=== PATIENT | female | born 1930 | race Caucasian/White ===

== ENCOUNTER 2017-08-28 00:32 | Inpatient (IN) ==
[2017-08-28 01:34] LABS: Basophils % 0.2 %; Hematocrit 34.2 % (35.3-44.9); Hemoglobin 10.2 g/dL (11.5-15.4); Immature Granulocytes % 0.4 % (0-4); Lymphocytes # 0.8 K/mcL (0.6-4.6); Lymphocytes % 4.5 %; Mean Corpuscular HGB Conc 29.8 g/dL (31.6-35.5); Mean Corpuscular Hemoglobin 24.5 pg (28.0-33.3); Mean Corpuscular Volume 82.2 fL (83.0-100.0); Mean Platelet Volume 9.4 fL (9.4-12.4); Monocytes # 1.8 K/mcL (0.0-1.3); Monocytes % 10.1 %; Neutrophils # 15.4 K/mcL (1.6-8.9); Nucleated Red Blood Cells 0.1 /100 WBC (0); Platelet Count 329 K/mcL (140-400); Red Blood Count 4.16 M/mcL (3.82-4.97); Red Cell Distribution Width 18.4 % (11.5-14.5); Segmented Neutrophils % 84.8 %
[2017-08-28 01:52] LABS: VBG HCO3 31 mEq/L (21-27); VBG PCO2 52 mmHg (41-51); VBG PH 7.39 pH Units (7.32-7.42); VBG PO2 49 mmHg (25-50)
[2017-08-28 01:54] LABS: BUN/Creatinine Ratio 23 (6-26); Blood Urea Nitrogen 19 mg/dL (8-23); Calcium 9.1 mg/dL (8.6-10.3); Carbon Dioxide 28 mEq/L (23-29); Chloride 101 mEq/L (98-107); Glucose 131 mg/dL (70-105); Osmolality,Calculated 286 (280-300); Potassium 3.9 mEq/L (3.5-5.1); Sodium 136 mEq/L (136-145); eGFR For African Americans > 60 (> 60); eGFR For Non-African Americans > 60 (> 60)
[2017-08-28] MEDS ORDERED: Ziprasidone injection 20 MG/ML VIAL IM ONE ×2 (01:59→09:42)
[2017-08-28] MEDS ORDERED: Ipratropium/Albuterol Neb 3 ML IH ONE (01:59)
[2017-08-28] MEDS ORDERED: Piperacillin/Tazobactam 3.375 GM in Water for inj. (sterile) 20 ML 20 ML IVP ONE (02:06)
[2017-08-28] MEDS ORDERED: 0.9 % Sodium Chloride 1,000 ML IVC ONE (02:06)
--- NOTE | 2017-08-28 02:09 | Emergency Department Note ---
Disposition Clinical Impression: Hypoxia, Sepsis Pneumonia Qualifiers: Pneumonia type: due to unspecified organism Laterality: right Lung location: lower lobe of lung Qualified Code(s): J18.1 - Lobar pneumonia, unspecified organism Disposition: Admitted As Inpatient Condition: Fair Referrals: NONE,PCP [Primary Care Provider] - Time of Disposition: 02: General Adult HPI - General Chief complaint: ED Upper Respiratory Infection Stated complaint: low sat, flu like sx Time Seen by Provider: 08/28/17 01:00 Source: EMS Mode of arrival: EMS Limitations: altered mental status Nursing Notes Reviewed: Yes Vital Signs Reviewed: Yes - History of Present Illness HPI Narrative: 87-year-old female with a history of dementia, CAD, hypertension and hyperlipidemia presents for evaluation of hypoxia as well as flulike illness. Patient does reside at a nursing facility. Nursing staff notes that the patient did spike a temperature today of 101. Patient was also requiring oxygen per EMS patient was noted to be in the mid 80s. Patient's typically not on oxygen. Patient was requiring some oxygen in the emergency department. Nursing staff also had a cough. Notes that the patient's mental status is at baseline. Pain Scale: 0 - Related Data Allergies Allergy/AdvReac Type Severity Reaction Status Date / Time Sulfa (Sulfonamide Allergy See Verified 08/28/17 00:43 Antibiotics) Comments lorazepam [From Ativan] AdvReac Irritable Verified 08/28/17 00:43 All systems ED: reviewed and negative except as stated. Constitutional: Reports: fever Cardiovascular: Denies: chest pain Respiratory: Reports: cough, dyspnea Gastrointestinal: Denies: abdominal pain, nausea, vomiting Past Medical History - Past Medical History Source: patient Medical history: Reports: arthritis, coronary artery disease, dementia, hyperlipidemia, hypertension - Social History Smoking Status: Unknown if ever smoked Physical Exam - General Limitations: altered mental status General appearance: alert, in no apparent distress - Head Head exam: atraumatic, normal inspection - Eye Eye exam: Present: normal appearance, EOMI - ENT ENT exam: normal exam - Neck Neck exam: Present: normal inspection - Chest Chest inspection: Present: normal inspection, symmetric chest wall rise - Respiratory Respiratory exam: Present: wheezes (Faint expiratory wheeze), prolonged expiratory phase, other (Right-sided rhonchi). Absent: respiratory distress - Cardiovascular Cardiovascular exam: Present: regular rate, normal rhythm. Absent: systolic murmur - Abdominal Exam Abdominal exam: Present: soft, Non-Tender - Extremities Exam Extremities exam: Present: normal inspection - Expanded Lower Extremity Exam Neurovascular/Tendon exam: Present: normal capillary refill - Back Exam Back exam: Present: normal inspection - Neurological Exam Neurological exam: Present: alert, oriented X3 - Skin Skin exam: Present: warm, dry, intact, normal color Course Course Narrative: Patient seen and examined. Patient has a history of dementia at baseline. Patient is not cooperative with exam. Patient will receive Geodon IM. She will also get basic lab work chest x-ray. Supplemental oxygen respiratory support. Vital Signs Temperature 99.4 F 08/28/17 00:34 Pulse Rate 98 08/28/17 00:34 Respiratory Rate 18 08/28/17 00:34 Blood Pressure 119/74 08/28/17 00:34 O2 Sat by Pulse Oximetry 93 08/28/17 00:34 Temperature 99.4 F 08/28/17 00:34 Pulse Rate 105 08/28/17 02:34 Respiratory Rate 20 08/28/17 03:18 Blood Pressure 145/68 08/28/17 03:18 O2 Sat by Pulse Oximetry 90 08/28/17 02:34 Oxygen Delivery Oxygen Delivery Nasal Cannula Medical Decision Making - [facility] Narrative Medical decision making narrative: Patient presents for concerns of pneumonia. Patient is in a nursing facility. Patient does not have a fever earlier today. Does have a cough. Patient does not provide any additional history due to history of dementia. Dementia appears at baseline. Patient is requiring supplemental oxygen. Patient was given Geodon as she was noncooperative with exam. Agents chest x-ray findings are consistent with right-sided pneumonia. Patient does have a white count of sedation with pneumonia. Does meet SIRS however given no hemodynamic compromise and a negative lactate the patient does not meet criteria for 30 mL/ kg bolus. Patient was given IV fluid hydration and coverage for healthcare associated pneumonia. She was empirically treated with Tamiflu in the emergency department with a single dose. Subsequent laboratory findings show that she is influenza negative. - Lab Data Lab results reviewed: Yes I reviewed the patient's lab results. Result diagrams: 08/28/17 01:26 08/28/17 01:26 Lab Results 08/28/17 08/28/17 08/28/17 Range/Units 01:26 01:26 01:26 WBC 18.1 H (4.3-11.1) K/mcL RBC 4.16 (3.82-4.97) M/mcL Hgb 10.2 L (11.5-15.4) g/dL Hct 34.2 L (35.3-44.9) % MCV 82.2 L (83.0-100.0) fL MCH 24.5 L (28.0-33.3) pg MCHC 29.8 L (31.6-35.5) g/dL RDW 18.4 H (11.5-14.5) % Plt Count 329 (140-400) K/mcL MPV 9.4 (9.4-12.4) fL Immature Gran % 0.4 (0-4) % Seg Neutrophils % 84.8 % Lymphocytes % 4.5 % Monocytes % 10.1 % Eosinophils % 0.0 % Basophils % 0.2 % Neutrophils # 15.4 H (1.6-8.9) K/mcL Lymphocytes # 0.8 (0.6-4.6) K/mcL Monocytes # 1.8 H (0.0-1.3) K/mcL Eosinophils # 0.0 (0.0-0.6) K/mcL Basophils # 0.0 (0.0-0.2) K/mcL Nucleated RBCs/100 WBC 0.1 H (0) /100 WBC Platelet Estimate Normal (Normal) Polychromasia 1+ A (Not Present) Hypochromasia Present A (Not Present) Anisocytosis 1+ A (Not Present) VBG pH (7.32-7.42) pH Units VBG pCO2 (41-51) mmHg VBG pO2 (25-50) mmHg VBG HCO3 (21-27) mEq/L Sodium 136 (136-145) mEq/L Potassium 3.9 (3.5-5.1) mEq/L Chloride 101 (98-107) mEq/L Carbon Dioxide 28 (23-29) mEq/L BUN 19 (8-23) mg/dL Creatinine 0.83 (0.60-1.20) mg/dL Est GFR ( Amer) > 60 (> 60) Est GFR (Non-Af Amer) > 60 (> 60) BUN/Creatinine Ratio 23 (6-26) Glucose 131 H (70-105) mg/dL Calculated Osmolality 286 (280-300) Lactic Acid 1.0 (0.5-2.2) mmol/L Calcium 9.1 (8.6-10.3) mg/dL Troponin I (< 0.04) ng/mL B-Natriuretic Peptide (Less than 100) pg/mL 08/28/17 08/28/17 08/28/17 Range/Units 01:26 01:26 01:50 WBC (4.3-11.1) K/mcL RBC (3.82-4.97) M/mcL Hgb (11.5-15.4) g/dL Hct (35.3-44.9) % MCV (83.0-100.0) fL MCH (28.0-33.3) pg MCHC (31.6-35.5) g/dL RDW (11.5-14.5) % Plt Count (140-400) K/mcL MPV (9.4-12.4) fL Immature Gran % (0-4) % Seg Neutrophils % % Lymphocytes % % Monocytes % % Eosinophils % % Basophils % % Neutrophils # (1.6-8.9) K/mcL Lymphocytes # (0.6-4.6) K/mcL Monocytes # (0.0-1.3) K/mcL Eosinophils # (0.0-0.6) K/mcL Basophils # (0.0-0.2) K/mcL Nucleated RBCs/100 WBC (0) /100 WBC Platelet Estimate (Normal) Polychromasia (Not Present) Hypochromasia (Not Present) Anisocytosis (Not Present) VBG pH 7.39 (7.32-7.42) pH Units VBG pCO2 52 H (41-51) mmHg VBG pO2 49 (25-50) mmHg VBG HCO3 31 H (21-27) mEq/L Sodium (136-145) mEq/L Potassium (3.5-5.1) mEq/L Chloride (98-107) mEq/L Carbon Dioxide (23-29) mEq/L BUN (8-23) mg/dL Creatinine (0.60-1.20) mg/dL Est GFR ( Amer) (> 60) Est GFR (Non-Af Amer) (> 60) BUN/Creatinine Ratio (6-26) Glucose (70-105) mg/dL Calculated Osmolality (280-300) Lactic Acid (0.5-2.2) mmol/L Calcium (8.6-10.3) mg/dL Troponin I 0.03 (< 0.04) ng/mL B-Natriuretic Peptide 173 H (Less than 100) pg/mL 08/28/17 Range/Units 02:48 WBC (4.3-11.1) K/mcL RBC (3.82-4.97) M/mcL Hgb (11.5-15.4) g/dL Hct (35.3-44.9) % MCV (83.0-100.0) fL MCH (28.0-33.3) pg MCHC (31.6-35.5) g/dL RDW (11.5-14.5) % Plt Count (140-400) K/mcL MPV (9.4-12.4) fL Immature Gran % (0-4) % Seg Neutrophils % % Lymphocytes % % Monocytes % % Eosinophils % % Basophils % % Neutrophils # (1.6-8.9) K/mcL Lymphocytes # (0.6-4.6) K/mcL Monocytes # (0.0-1.3) K/mcL Eosinophils # (0.0-0.6) K/mcL Basophils # (0.0-0.2) K/mcL Nucleated RBCs/100 WBC (0) /100 WBC Platelet Estimate (Normal) Polychromasia (Not Present) Hypochromasia (Not Present) Anisocytosis (Not Present) VBG pH (7.32-7.42) pH Units VBG pCO2 (41-51) mmHg VBG pO2 (25-50) mmHg VBG HCO3 (21-27) mEq/L Sodium (136-145) mEq/L Potassium (3.5-5.1) mEq/L Chloride (98-107) mEq/L Carbon Dioxide (23-29) mEq/L BUN (8-23) mg/dL Creatinine (0.60-1.20) mg/dL Est GFR ( Amer) (> 60) Est GFR (Non-Af Amer) (> 60) BUN/Creatinine Ratio (6-26) Glucose (70-105) mg/dL Calculated Osmolality (280-300) Lactic Acid 1.3 (0.5-2.2) mmol/L Calcium (8.6-10.3) mg/dL Troponin I (< 0.04) ng/mL B-Natriuretic Peptide (Less than 100) pg/mL - Radiology Data Radiology results reviewed: Yes I reviewed the patient's radiology results. Chest X-Ray 08/28/17 01:11 IMPRESSION: Right basilar airspace disease likely represents pneumonia. D/ / Rajinder Pedraza MD / Rajinder Pedraza MD Interpreting Provider: Rajinder Pedraza MD - EKG Data EKG #1 EKG attestation: Yes I reviewed and interpreted this EKG. EKG shows normal: sinus rhythm Rate: tachycardia Rhythm: NSR [place]/QRS: normal Interpretation: no acute changes, nonspecific ST-T wave changes S.B.A.R. - S.B.A.R. Situation: Demographics Background: Presenting Complaint Assessment: Vital Signs, Patient/Family Expectation Recommendation: Barrier(s) to disposition, Recommendation based on pending studies, treatments, or consults S.B.A.RBrenda Report Given to: Dr. Justina Bean Repor Time: 02:40 Attestation Statement - Attestation Attestation: I, Rolf Amanda DO, examined this patient [id number] and my medical decision-making was reviewed with Dr. Shaka Guerrero, Resident Physician. I agree with the documented findings, disposition and treatment plan as described except to the extent set forth below. Please see my progress notes for details. 87-year-old female presents emergency room nursing facility for confusion, fever , generalized malaise. She is a pleasantly demented 87-year-old. She denies any trauma or injury at this point. She does answer questions but it is difficult to determine whether or not she understands the questioning that is going on. She is only alert to her name. Physical exam is unremarkable except for coarse breath sounds bilaterally. Her abdomen is soft nontender nondistended. She has been a diaper. She does not have any signs of skin breakdown or ulceration revision of visible signs of trauma to the head of the face. Detailed evaluation to be completed for infectious etiology secondary to confusion and fever. Fever will be controlled. EKG and screening laboratory workup were unremarkable except for elevated white blood cell count neutrophilia. Antibiotic regimen started this time for pneumonia covering healthcare acquired pneumonia. Chest x-ray does show pulmonary congestion possible infiltrate. Influenza swab is negative. Patient was provided with breathing treatments here but she will not tolerate them. Her vital signs remained stable after Geodon out her acute agitation. Patient will be admitted for definitive management here in the hospital. No other acute recommendations issues noted from the hospitals at this time. Physical exam is otherwise unremarkable. See detailed documentation of the physical exam, medical intervention, medical decision-making and disposition in the resident physician' s note. No critical care provided to the patient's treatment course 0314 Patient found to have elevated white blood cell count intermittent tachycardia and a source of infection. She does meet sepsis criteria. Clinically she does not require fluid resuscitation this time with stable blood pressure and a negative lactic acid. Patient otherwise is resting comfortably in the bed with antibiotic regimen started at this time. Patient is otherwise clinically stable. Will continue to monitor as treatment course is completed admission process is established. Otherwise no other acute issues noted at this time. Patient is in good medical condition at the time of transport to the floor.
[2017-08-28 02:10] LABS: Anisocytosis 1+ (Not Present); Hypochromasia Present (Not Present); Platelet Estimate Normal (Normal); Polychromasia 1+ (Not Present)
--- NOTE | 2017-08-28 05:34 | Internal Med History&Physical ---
Date of Encounter: 08/28/17 Time of Encounter: 05:29 Assessment and Plan (1) Pneumonia Current visit: Yes Status: Acute HCAP Continue Vancomycin and Zosyn Add Azithromycin for atypical coverage DuoNebs Pneumonia type: due to unspecified organism Laterality: right (2) Sepsis Current visit: Yes Status: Acute Cautious fluid resuscitation Repeat LA Continue current abx Qualifiers: Sepsis type: sepsis due to unspecified organism Qualified Code(s): A41.9 - Sepsis, unspecified organism (3) Dementia Current visit: No Status: Chronic Continue her home mediations She may require Haldol or Zyprexa for agitation Qualifiers: Dementia type: unspecified type Dementia behavioral disturbance: with behavioral disturbance Qualified Code(s): F03.91 - Unspecified dementia with behavioral disturbance Internal Medicine - H&P: HPI Chief complaint: Pneumonia Admitted From: Emergency Dept Plans for Post Hospital Care: Transfer Senior Living Facility History of present illness: The patient is an 87-year-old female dementia patient who presented in the ER with hypoia, cough and flu-like symptoms. She reportedly has a 101 degree fever earlier today and had an Spo2 in the mid 80s on room air. Her CXR mshowed a probable right basilar infiltrate and she was started on Vanc and Zosyn. Per report she lives in a NH and several residents have influenza so she was imperically started on Tamiflu, but this was discontinued when her flu swab was negative. She can provide little information because of her dementia so most of her history comes from the EMR and ER notes. She's now breathing more comfortably and maintaining an Spo2 > 94% on 4L NC. Blood cultures are pending. Her other comorbid conditions include CAD, HTN and Dyslipidemia. Past Med Surg Social Fam HX - Past Medical History Medical history: arthritis, coronary artery disease, dementia, hyperlipidemia, hypertension - Social History Smoking Status: Unknown if ever smoked Internal Medicine - H&P: Meds Acetaminophen [Tylenol] PO TID 08/28/17 [History] Aspirin 08/28/17 [History] Citalopram 08/28/17 [History] Docusate Sodium [Stool Softener] 08/28/17 [History] Guaifenesin [Diabetic Tussin Ex] 08/28/17 [History] Guaifenesin [Mucinex] 600 mg PO 08/28/17 [History] Ipratropium/Albuterol Neb 08/28/17 [History] Levocetirizine Dihydrochloride 08/28/17 [History] Lisinopril [Lisinopril] 08/28/17 [History] Metoprolol Tartrate 08/28/17 [History] Namzaric Titration Pack 08/28/17 [History] Polyethylene Glycol 3350 [Gavilax] 08/28/17 [History] 3 Allergy/AdvReac Type Severity Reaction Status Date / Time Sulfa (Sulfonamide Allergy See Verified 08/28/17 00:43 Antibiotics) Comments lorazepam [From Ativan] AdvReac Irritable Verified 08/28/17 00:43 ROS unobtainable: due to mental status All Systems PM: A 10-system review of systems was performed and is negative for pertinent findings except as documented above in the HPI. - Constitutional Vitals: Temp Pulse Resp BP Pulse Ox 98.7 F 101 20 135/73 98 08/28/17 03:47 08/28/17 03:47 08/28/17 03:47 08/28/17 03:47 08/28/17 04:31 General appearance: Present: A&O X 1, disheveled, mild distress, obese. Absent : answers questions appropriately - Head Head exam: Present: atraumatic, normocephalic - Eye Eye exam: Present: EOMI, PERRL, conjuntiva pink, sclera anicteric. Absent: conjunctival injection Pupils: Present: PERRL - Neck Neck exam general surgery: Present: supple, trachea midline. Absent: lymphadenopathy - Respiratory Respiratory exam: Present: decreased breath sounds, rales, rhonchi. Absent: accessory muscle use, CTAB, stridor, wheezes - Cardiovascular Cardiovascular exam: Present: distant heart sounds, RRR, +S1, +S2. Absent: diastolic murmur, gallop, rubs, systolic murmur - GI/Abdominal GI/Abdominal exam: Present: normal bowel sounds, soft, no peritoneal signs. Absent: distended, guarding, rebound, rigid, tenderness - Extremities Exam Extremities exam: Present: pedal edema, warm, radial pulses palpable and symmetrical. Absent: calf tenderness, cyanotic - Neurological Exam Neurological exam: Present: CN II-XII intact, no focal deficits. Absent: oriented X3, pronater drift, facial droop, speech deficit - Skin Skin exam: Present: diaphoretic, intact, warm. Absent: mottled, normal color, pallor Internal Med - H&P Results - Labs CBC & Chem 7: 08/28/17 01:26 08/28/17 01:26
[2017-08-28] MEDS ORDERED: Benzonatate 100 MG CAPSULE PO PRN (06:05)
[2017-08-28 06:40] LABS: Hematocrit 35.9 % (35.3-44.9); Hemoglobin 10.4 g/dL (11.5-15.4); Mean Corpuscular Hemoglobin 24.3 pg (28.0-33.3); Mean Corpuscular Volume 83.9 fL (83.0-100.0); Mean Platelet Volume 9.8 fL (9.4-12.4); Nucleated Red Blood Cells 0.1 /100 WBC (0); Platelet Count 333 K/mcL (140-400); Red Blood Count 4.28 M/mcL (3.82-4.97); Red Cell Distribution Width 18.7 % (11.5-14.5)
[2017-08-28 07:04] LABS: BUN/Creatinine Ratio 22 (6-26); Blood Urea Nitrogen 17 mg/dL (8-23); Calcium 8.9 mg/dL (8.6-10.3); Carbon Dioxide 30 mEq/L (23-29); Chloride 102 mEq/L (98-107); Glucose 135 mg/dL (70-105); Osmolality,Calculated 292 (280-300); Potassium 3.8 mEq/L (3.5-5.1); Sodium 139 mEq/L (136-145); eGFR For African Americans > 60 (> 60); eGFR For Non-African Americans > 60 (> 60)
--- NOTE | 2017-08-28 08:13 | Internal Med Progress Note ---
Date of Encounter: 08/28/17 Time of Encounter: 10:00 - Assessment and plan (1) Sepsis Current Visit: Yes Status: Acute Assessment and plan: Continue current management. Patient intermittently agitated due to underlying dementia. Will treat with antipsychotic agents as needed. One-to-one sitter. Follow blood cultures. O2 supplementation. Qualifiers: Sepsis type: sepsis due to unspecified organism Qualified Code(s): A41.9 - Sepsis, unspecified organism (2) Hypoxia Current Visit: Yes Status: Acute (3) Pneumonia Current Visit: Yes Status: Acute Qualifiers: Pneumonia type: due to unspecified organism Laterality: right Lung location: lower lobe of lung Qualified Code(s): J18.1 - Lobar pneumonia, unspecified organism (4) Dementia Current Visit: No Status: Chronic Qualifiers: Dementia type: unspecified type Dementia behavioral disturbance: with behavioral disturbance Qualified Code(s): F03.91 - Unspecified dementia with behavioral disturbance - Constitutional Vitals: Temp Pulse Resp BP Pulse Ox 98.7 F 93 22 123/67 97 08/28/17 07:18 08/28/17 07:18 08/28/17 07:18 08/28/17 07:18 08/28/17 07:27 General appearance: Present: A&O X 1, disheveled, mild distress, obese. Absent : answers questions appropriately Internal Medicine: Result - Labs CBC & Chem 7: 08/28/17 06:07 08/28/17 06:07 Labs: Short CBC 08/28/17 Range/Units 06:07 WBC 18.8 H (4.3-11.1) K/mcL Hgb 10.4 L (11.5-15.4) g/dL Hct 35.9 (35.3-44.9) % Plt Count 333 (140-400) K/mcL BMP 08/28/17 06:07 Sodium 139 Potassium 3.8 Chloride 102 Carbon Dioxide 30 H BUN 17 Creatinine 0.79 Glucose 135 H Calcium 8.9 Consult Discharge Plan - Plan Referrals: NONE,PCP [Primary Care Provider] - (Patient is from [facility])
[2017-08-28] MEDS: Azithromycin 500 MG in D5% in Water 250 ML IVPB SCH (08:17)
[2017-08-28 08:50] LABS: Lymphocytes # 1.5 K/mcL (0.6-4.6); Monocytes # 1.5 K/mcL (0.0-1.3); Neutrophils # 15.8 K/mcL (1.6-8.9); Platelet Estimate Normal (Normal); Reactive Lymphocytes Present (Not Present)
[2017-08-28 09:35] LABS: Adenovirus Not Detected (Not Detect); Bordetella Pertussis Not Detected (Not Detect); Chlamydophila pneumoniae Not Detected (Not Detect); Coronavirus 229E Not Detected (Not Detect); Coronavirus HKU1 Not Detected (Not Detect); Coronavirus NL63 Not Detected (Not Detect); Coronavirus OC43 Not Detected (Not Detect); Human Metapneumovirus Not Detected (Not Detect); Human Rhinovirus/Enterovirus Not Detected (Not Detect); Influenza A Subtype 2009 H1 Not Detected (Not Detect); Influenza A Untypeable Not Detected (Not Detect); Influenza B Not Detected (Not Detect); Mycoplasma pneumoniae Not Detected (Not Detect); Parainfluenza Virus 1 Not Detected (Not Detect); Parainfluenza Virus 2 Not Detected (Not Detect); Parainfluenza Virus 3 Not Detected (Not Detect); Parainfluenza Virus 4 Not Detected (Not Detect); Respiratory Syncytial Virus Not Detected (Not Detect)
[2017-08-28] MEDS: Ipratropium/Albuterol Neb 3 ML IH PRN (14:27)
--- NOTE | 2017-08-28 15:16 | Electrocardiograph Report ---
[address] [place] [address] Test Date: 2017-08-28 Pat Name: Luba Villa Department: 103 Room: 2A25 Gender: F Darkroom Technician: : [id number] Requested By: Shaka Guerrero Order Number: [id number] Reading MD: Meche Perkins Measurements Intervals [place] Rate: 101 P: 93 [place]: 168 QRS: 11 QRSD: 69 T: 79 QT: 322 QTc: 380 Interpretive Statements SINUS TACHYCARDIA NONSPECIFIC ST-WAVE ABNORMALITY ABNORMAL RHYTHM ECG Electronically Signed On 08-28-2017 15:14:52 EST by Meche Perkins
[2017-08-28] MEDS: *HR* Heparin 5,000 UNIT/ML VIAL SQ SCH (16:28)
[2017-08-28] MEDS: Acetaminophen 325 MG TABLET PO SCH ×2 (16:28→20:15)
[2017-08-28] MEDS ORDERED: GuaiFENesin Liq 200 MG/10 ML UDC PO PRN (20:30)
[2017-08-28] MEDS ORDERED: Haloperidol Lactate 5 MG/ML VIAL IM ONE (23:28)
[2017-08-29] MEDS: Ipratropium/Albuterol Neb 3 ML IH PRN (03:25)
[2017-08-29 04:19] LABS: Red Cell Distribution Width 18.9 % (11.5-14.5)
[2017-08-29 04:20] LABS: Basophils # 0.1 K/mcL (0.0-0.2); Basophils % 0.6 %; Eosinophils % 0.2 %; Hematocrit 34.8 % (35.3-44.9); Hemoglobin 9.8 g/dL (11.5-15.4); Immature Granulocytes % 1.4 % (0-4); Lymphocytes # 1.6 K/mcL (0.6-4.6); Lymphocytes % 10.3 %; Mean Corpuscular HGB Conc 28.2 g/dL (31.6-35.5); Mean Corpuscular Hemoglobin 24.2 pg (28.0-33.3); Mean Corpuscular Volume 85.9 fL (83.0-100.0); Mean Platelet Volume 10.2 fL (9.4-12.4); Monocytes # 1.2 K/mcL (0.0-1.3); Monocytes % 8.1 %; Nucleated Red Blood Cells 0.3 /100 WBC (0); Platelet Count 336 K/mcL (140-400); Red Blood Count 4.05 M/mcL (3.82-4.97); Segmented Neutrophils % 79.4 %
[2017-08-29 04:23] LABS: Neutrophils # 12.2 K/mcL (1.6-8.9)
[2017-08-29 04:36] LABS: BUN/Creatinine Ratio 25 (6-26); Blood Urea Nitrogen 20 mg/dL (8-23); Calcium 9.1 mg/dL (8.6-10.3); Carbon Dioxide 29 mEq/L (23-29); Chloride 104 mEq/L (98-107); Glucose 105 mg/dL (70-105); Osmolality,Calculated 291 (280-300); Potassium 4.2 mEq/L (3.5-5.1); Sodium 139 mEq/L (136-145); eGFR For African Americans > 60 (> 60); eGFR For Non-African Americans > 60 (> 60)
[2017-08-29 05:09] LABS: Hypochromasia Present (Not Present); Reactive Lymphocytes Present (Not Present); Toxic Granulation Present (Not Present)
[2017-08-29] MEDS: *HR* Heparin 5,000 UNIT/ML VIAL SQ SCH ×2 (05:49→16:36)
[2017-08-29] MEDS: Azithromycin 500 MG in D5% in Water 250 ML IVPB SCH (06:37)
[2017-08-29] MEDS: Ipratropium/Albuterol Neb 3 ML IH SCH ×5 (07:49→23:49)
[2017-08-29] MEDS ORDERED: Haloperidol Lactate 5 MG/ML VIAL IVP ONE ×2 (08:00→18:11)
[2017-08-29] MEDS: Aspirin Enteric Coated 81 MG Tablet PO SCH (08:10)
[2017-08-29] MEDS: Acetaminophen 325 MG TABLET PO SCH ×3 (08:10→22:08)
[2017-08-29] MEDS ORDERED: DONEPEZIL HCL PO SCH (09:00)
[2017-08-29] MEDS ORDERED: MEMANTINE HCL PO SCH (09:00)
[2017-08-29] MEDS ORDERED: LEVOCETIRIZINE DIHYDROCHLORIDE PO SCH (09:00)
--- NOTE | 2017-08-29 14:36 | Internal Med Progress Note ---
Date of Encounter: 08/29/17 Time of Encounter: 09:25 - Assessment and plan (1) Sepsis Current Visit: Yes Status: Suspected Assessment and plan: On broad-spectrum antibiotics. Cultures are so far negative. If they remain negative the next 24 hours, will de-escalate antibiotics. Qualifiers: Sepsis type: methicillin resistant Staphylococcus aureus Qualified Code(s) : A41.02 - Sepsis due to Methicillin resistant Staphylococcus aureus (2) Hypoxia Current Visit: Yes Status: Acute Assessment and plan: Continue O2 supplementation. Due to pneumonia. (3) Pneumonia Current Visit: Yes Status: Suspected Assessment and plan: Being treated with broad-spectrum antibiotics. Continue for now. Monitor culture results. WBC count is improving. Moderate risk for complications. Qualifiers: Pneumonia type: due to methicillin-resistant Staphylococcus aureus (MRSA) Laterality: right Lung location: lower lobe of lung Qualified Code(s): J15.212 - Pneumonia due to Methicillin resistant Staphylococcus aureus (4) Dementia Current Visit: Yes Status: Chronic Assessment and plan: With episodes of delirium and agitation. Will prescribe risperidone at bedtime. Monitor and treat agitation as needed. Qualifiers: Dementia type: unspecified type Dementia behavioral disturbance: with behavioral disturbance Qualified Code(s): F03.91 - Unspecified dementia with behavioral disturbance (5) DVT prophylaxis Current Visit: Yes Status: Acute Assessment and plan: With subcutaneous heparin - Subjective Interval history: Patient was agitated earlier this morning and combative with nursing staff. She received IV Haldol and is resting. She has not had any fever overnight. Remains on O2 supplementation at 4 L by nasal cannula. - Constitutional Vitals: Temp Pulse Resp BP Pulse Ox 99.4 F 75 18 115/72 91 08/29/17 11:14 08/29/17 11:14 08/29/17 11:59 08/29/17 11:14 08/29/17 11:59 General appearance: Present: A&O X 1, disheveled, mild distress, obese. Absent : answers questions appropriately - Eye Eye exam: Present: EOMI, PERRL, conjuntiva pink, sclera anicteric - Neck Neck exam general surgery: Present: supple, trachea midline. Absent: lymphadenopathy - Respiratory Respiratory exam: Present: CTAB. Absent: accessory muscle use, rales, rhonchi, wheezes - Cardiovascular Cardiovascular exam: Present: RRR, +S1, +S2. Absent: diastolic murmur, gallop, rubs, systolic murmur - GI/Abdominal GI/Abdominal exam: Present: normal bowel sounds, soft, no peritoneal signs. Absent: distended, tenderness - Extremities Exam Extremities exam: Present: warm, radial pulses palpable and symmetrical. Absent : calf tenderness, cyanotic, pedal edema Internal Medicine: Result - Labs CBC & Chem 7: 08/29/17 03:28 08/29/17 03:28 Labs: Short CBC 08/29/17 Range/Units 03:28 WBC 15.3 H (4.3-11.1) K/mcL Hgb 9.8 L (11.5-15.4) g/dL Hct 34.8 L (35.3-44.9) % Plt Count 336 (140-400) K/mcL Neutrophils # 12.2 H (1.6-8.9) K/mcL BMP 08/29/17 03:28 Sodium 139 Potassium 4.2 Chloride 104 Carbon Dioxide 29 BUN 20 Creatinine 0.80 Glucose 105 Calcium 9.1 - Impressions Impressions Videofluoroscopic Swallow 08/28/17 13:39 IMPRESSION: Single episode of transient flash penetration of thin barium via straw. No additional episodes of laryngeal penetration or aspiration. Please see separate speech pathology report for full discussion of findings and recommendations. D/ / Tye Montoya MD / Tye Montoya MD Interpreting Provider: Tye Montoya MD Consult Discharge Plan - Plan Referrals: NONE,PCP [Primary Care Provider] - (Patient is from [facility])
[2017-08-29] MEDS ORDERED: Haloperidol Lactate 5 MG/ML VIAL ONE (18:06)
[2017-08-29] MEDS ORDERED: risperiDONE 0.25 MG TABLET PO SCH (21:00)
[2017-08-30 01:25] LABS: Hemoglobin 9.5 g/dL (11.5-15.4)
[2017-08-30 01:27] LABS: Basophils # 0.1 K/mcL (0.0-0.2); Basophils % 0.7 %; Eosinophils % 0.2 %; Hematocrit 33.6 % (35.3-44.9); Immature Granulocytes % 2.1 % (0-4); Lymphocytes # 1.1 K/mcL (0.6-4.6); Lymphocytes % 8.8 %; Mean Corpuscular HGB Conc 28.3 g/dL (31.6-35.5); Mean Corpuscular Hemoglobin 24.4 pg (28.0-33.3); Mean Corpuscular Volume 86.4 fL (83.0-100.0); Mean Platelet Volume 9.9 fL (9.4-12.4); Monocytes # 1.5 K/mcL (0.0-1.3); Monocytes % 11.9 %; Nucleated Red Blood Cells 0.3 /100 WBC (0); Platelet Count 329 K/mcL (140-400); Red Blood Count 3.89 M/mcL (3.82-4.97); Red Cell Distribution Width 18.9 % (11.5-14.5); Segmented Neutrophils % 76.3 %
[2017-08-30 01:37] LABS: Neutrophils # 9.8 K/mcL (1.6-8.9)
[2017-08-30 02:02] LABS: BUN/Creatinine Ratio 35 (6-26); Blood Urea Nitrogen 25 mg/dL (8-23); Calcium 9.2 mg/dL (8.6-10.3); Carbon Dioxide 28 mEq/L (23-29); Chloride 106 mEq/L (98-107); Glucose 118 mg/dL (70-105); Osmolality,Calculated 295 (280-300); Potassium 4.2 mEq/L (3.5-5.1); Sodium 140 mEq/L (136-145); eGFR For African Americans > 60 (> 60); eGFR For Non-African Americans > 60 (> 60)
[2017-08-30 03:25] LABS: Platelet Estimate Normal (Normal)
[2017-08-30 03:27] LABS: Anisocytosis 1+ (Not Present); Hypochromasia Present (Not Present)
[2017-08-30] MEDS: Ipratropium/Albuterol Neb 3 ML IH SCH ×3 (03:41→11:56)
[2017-08-30] MEDS: *HR* Heparin 5,000 UNIT/ML VIAL SQ SCH (05:52)
[2017-08-30] MEDS: Azithromycin 500 MG in D5% in Water 250 ML IVPB SCH (07:25)
[2017-08-30] MEDS ORDERED: Piperacillin/Tazobactam 3.375 GM in 0.9 % Sodium Chloride Mini Bag 100 ML IVPB SCH (08:00)
[2017-08-30] MEDS: Aspirin Enteric Coated 81 MG Tablet PO SCH (08:39)
[2017-08-30] MEDS: Acetaminophen 325 MG TABLET PO SCH (08:39)
[2017-08-30] MEDS ORDERED: risperiDONE 0.25 MG TABLET PO SCH (09:00)
[2017-08-30] MEDS ORDERED: metroNIDAZOLE 500 MG TABLET PO SCH (09:00)
[2017-08-30] MEDS ORDERED: levoFLOXacin 500 MG TABLET PO SCH (09:00)
[2017-08-30 10:23] VITALS: BP 133/78
--- NOTE | 2017-08-30 11:00 | Discharge Summary ---
Date of Encounter: 08/30/17 Time of Encounter: 10:15 - Discharge Diagnosis (1) Sepsis Priority: Primary Status: Acute Qualifiers: Sepsis type: sepsis due to unspecified organism Qualified Code(s): A41.9 - Sepsis, unspecified organism (2) Hypoxia Priority: Secondary Status: Acute (3) Pneumonia Priority: Secondary Status: Acute Qualifiers: Pneumonia type: due to unspecified organism Laterality: right Lung location: lower lobe of lung Qualified Code(s): J18.1 - Lobar pneumonia, unspecified organism (4) Dementia Priority: Secondary Status: Chronic Qualifiers: Dementia type: unspecified type Dementia behavioral disturbance: with behavioral disturbance Qualified Code(s): F03.91 - Unspecified dementia with behavioral disturbance (5) DVT prophylaxis Priority: Secondary Status: Acute Hospital course: Ms. Villa is a 87 year old female patient with history of dementia who resides at [facility] presented to the ER with complaints of hypoxia cough and flulike symptoms. She was found to have right basal pneumonia. She was started on IV [id number] given that she resides at [facility]. Her blood cultures were sent. She did have leukocytosis on presentation. With aggressive treatment her symptoms have improved. Her cultures have remained negative. She did fail speech therapy here and underwent modified barium swallow study. Based on these findings, she has been placed on soft diet. She may have had aspiration resulting in pneumonia. As such she will be discharged on levofloxacin and Flagyl to treat her pneumonia. She is clinically doing better now and will finish antibiotic course after discharge. With her dementia, she has had episodes of agitation here. These were treated with antipsychotic agents used as needed. She responded well to them. She is now back to baseline. Discharge discussed with: patient, nurse - Time Spent with Patient Total time spent providing and/or coordinating discharge services: Greater than 30 minutes (40 min) - Discharge Medications Prescriptions: levoFLOXacin [Levaquin] 500 mg PO DAILY #7 tablet metroNIDAZOLE [Flagyl] 500 mg PO TID #21 tablet Home Medications: Acetaminophen [Tylenol] 325 mg PO TID 08/28/17 [History] Aspirin [Lo-Dose Aspirin EC] 81 mg PO DAILY 08/28/17 [History] Citalopram Hydrobromide [Citalopram HBr] 10 mg PO DAILY 08/28/17 [History] Docusate Sodium [Stool Softener] 100 mg PO BID 08/28/17 [History] Guaifenesin [Diabetic Tussin Ex] 5 ml PO Q4HR 08/28/17 [History] Guaifenesin [Mucinex] 600 mg PO Q12HR 08/28/17 [History] Ipratropium/Albuterol Neb [Duoneb] 3 ml IH Q6HR 08/28/17 [History] Levocetirizine Dihydrochloride 5 mg PO DAILY 08/28/17 [History] Memantine HCl/Donepezil HCl [Namzaric 28 mg-10 mg Capsule] 1 cap PO DAILY [History] Metoprolol [Lopressor] 12.5 mg PO BID 08/28/17 [History] Polyethylene Glycol 3350 [Gavilax] 17 gm PO ONCE 08/28/17 [History] Lisinopril 2.5 mg PO DAILY #0 08/30/17 [Rx] levoFLOXacin [Levaquin] 500 mg PO DAILY #7 tablet 08/30/17 [Rx] metroNIDAZOLE [Flagyl] 500 mg PO TID #21 tablet 08/30/17 [Rx] Allergies/Adverse Reactions: 3 Allergy/AdvReac Type Severity Reaction Status Date / Time Sulfa (Sulfonamide Allergy See Verified 08/28/17 00:43 Antibiotics) Comments lorazepam [From Ativan] AdvReac Irritable Verified 08/28/17 00:43 Date of admission: 08/28/17 03:48 Primary care physician: PCP NONE Consults: 08/28/17 09:50 Consult to Speech Therapy [CONS] Routine Comment: Evaluate, develop and implement POC Reason for Consult: pt failed nursing dysphagia screen Call Completed: Yes 08/28/17 10:31 Consult to Senior Research Scientist [CONS] Routine Reason for SW Consult: pt from [facility] Discharging clinician: Marni Han Anticipated date of discharge: 08/30/17 - Constitutional Vitals: Temp Pulse Resp BP Pulse Ox 98.1 F 74 20 133/78 95 08/30/17 10:21 08/30/17 10:21 08/30/17 10:21 08/30/17 10:21 08/30/17 10:21 General appearance: Present: A&O X 1, disheveled, mild distress, obese. Absent : answers questions appropriately - Neck Neck exam general surgery: Present: supple, trachea midline. Absent: lymphadenopathy - GI/Abdominal GI/Abdominal exam: Present: normal bowel sounds, soft, no peritoneal signs. Absent: distended, tenderness - Extremities Exam Extremities exam: Present: warm, radial pulses palpable and symmetrical. Absent : calf tenderness, cyanotic, pedal edema - Neurological Exam Neurological exam: Present: alert, no focal deficits. Absent: facial droop, speech deficit - Skin Skin exam: Present: dry, intact - Patient Status Disposition: Transfer SNF Condition: Good Functional capacity at discharge: bed bound Overall status at discharge: patient is progressing back to baseline - Discharge Instructions Instructions: Pneumonia (DC), Sepsis (DC) Follow Up With: NONE,PCP [Primary Care Provider] - (Patient is from [facility]) - Diet and Activity Diet: low fat, low cholesterol, low salt diet
--- NOTE | 2017-08-30 11:04 | Physician Discharge Referral ---
ExtendedCare Referral Info Provider in Charge after Transfer: PCP Institutional Level of Care: Skilled - Diagnosis (1) Sepsis Priority: Primary Status: Acute (2) Hypoxia Priority: Secondary Status: Acute (3) Pneumonia Priority: Secondary Status: Acute (4) Dementia Priority: Secondary Status: Chronic (5) DVT prophylaxis Priority: Secondary Status: Acute Prognosis: Fair Aware of Diagnosis: Patient - Transfer Medications Prescriptions: levoFLOXacin [Levaquin] 500 mg PO DAILY #7 tablet metroNIDAZOLE [Flagyl] 500 mg PO TID #21 tablet Home Medications: Acetaminophen [Tylenol] 325 mg PO TID 08/28/17 [History] Aspirin [Lo-Dose Aspirin EC] 81 mg PO DAILY 08/28/17 [History] Citalopram Hydrobromide [Citalopram HBr] 10 mg PO DAILY 08/28/17 [History] Docusate Sodium [Stool Softener] 100 mg PO BID 08/28/17 [History] Guaifenesin [Diabetic Tussin Ex] 5 ml PO Q4HR 08/28/17 [History] Guaifenesin [Mucinex] 600 mg PO Q12HR 08/28/17 [History] Ipratropium/Albuterol Neb [Duoneb] 3 ml IH Q6HR 08/28/17 [History] Levocetirizine Dihydrochloride 5 mg PO DAILY 08/28/17 [History] Memantine HCl/Donepezil HCl [Namzaric 28 mg-10 mg Capsule] 1 cap PO DAILY [History] Metoprolol [Lopressor] 12.5 mg PO BID 08/28/17 [History] Polyethylene Glycol 3350 [Gavilax] 17 gm PO ONCE 08/28/17 [History] Lisinopril 2.5 mg PO DAILY #0 08/30/17 [Rx] levoFLOXacin [Levaquin] 500 mg PO DAILY #7 tablet 08/30/17 [Rx] metroNIDAZOLE [Flagyl] 500 mg PO TID #21 tablet 08/30/17 [Rx] Allergies/Adverse Reactions: 3 Allergy/AdvReac Type Severity Reaction Status Date / Time Sulfa (Sulfonamide Allergy See Verified 08/28/17 00:43 Antibiotics) Comments lorazepam [From Ativan] AdvReac Irritable Verified 08/28/17 00:43 - Respiratory Orders Oxygen / L per min (keep sats >90%) Smoking Cessation: Smoking cessation has been advised. For more information, call the [place] Tobacco Quit Line at 7-818-ZNWG-NOW. - Advance Directives Code Status: Full Code - Mobility Orders Other (per PT eval) - Rehabiliation Orders Rehab Potential: Fair Rehab Orders: Evaluation for Physical Therapy, Evaluation for Occupational Therapy - Diet Orders Mechanical Soft CERTIFICATION: I certify that the transfer of the above named patient to an Extended Care Facility is necessary for the continuing treatment of the diagnosis listed. The above information is true and accurate reflection of patient's current condition. Confidential - Redisclosure prohibited without a patient's written consent.
[2017-08-30] MEDS ORDERED: Aminoglycoside Consult 1 EACH MC ONE (12:02)
== END 2017-08-30 12:03 | DRG 871 ==
LOC: 2ANU 00:32 → EMEROO 00:32 → 2ANU 03:19
PROVIDERS: ADMIT Pediatrics; ATTEND Internal Medicine